=== PATIENT | male | born 1970 | race African-American/Black ===

== ENCOUNTER 2016-12-01 18:01 | Emergency (ER) | payer OTHER ==
[~2016-12-01] VITALS: Ht 180.3 cm; Wt 100.0 kg
[2016-12-01 18:04] VITALS: BP 123/69; PULSE 85; RESP 18; O2SAT 98
--- NOTE | 2016-12-01 18:15 | ED.REPORT ---
HPI-General Illness Date of Service Dec 01, 2016 ED Provider: Casimiro Tim MD Pt is a generally healthy 46 y/o male presenting to the ED due to accidental ingestion of H2O2 which occurred prior to arrival. The patient was gargling about 4 oz of H2O2 and 4 oz of water while he was at work and accidentally swallowed. He then drank water and some fruit. He c/o associated abdominal burning pain and nausea. Pt denies vomiting, any other symptoms. Nursing Notes Stated Complaint: STOMACH PAIN, INGESTED HYDROGEN PEROXIDE Chief Complaint: General Complaint Nursing Notes Reviewed: Yes Allergies: Uncoded Allergies: APAP (Allergy, Unknown, 12/01/16) General Time Seen by MD: 18:12 Chief Complaint Other (ingestion h2o2) Hx Obtained From: Patient Arrived By: Walk-in Sudden in Onset?: Yes Onset Occurred: 1 - 4 hours ago Symptom Duration: Since onset Location: : Abdomen Quality: Painful Radiation: : Does not radiate Severity: Current: Mild Severity: Maximum: Mild Recent Healthcare: No recent doctor visit, No recent hospitalization Similar Sx Previous: No Past Medical History Past Medical History None reported Past Surgical History Left patella Smoking History Unknown if Ever Smoker Ambulatory Status Independent Review of Systems Full Review of Systems Constitutional: Denies: Chills, Fever Respiratory: Denies: Non-productive cough, Shortness of breath Cardiovascular: Denies: Chest pain, Dyspnea on exertion GI: Reports: Abdominal pain, Nausea, Denies: Vomiting Complete sys rev & neg: except as marked. Physical Exam Vital Signs Vital Signs Date Time Temp Pulse Resp B/P Pulse Ox O2 Delivery O2 Flow Rate FiO2 12/01/16 18:04 36.7 85 18 123/69 98 Room Air Initial VS: Reviewed, Vital signs normal Head / Eyes: Atraumatic, Normocephalic, PERRL ENT: Mucous membranes moist, Conjunctiva normal, No scleral icterus Neck: Supple, Full range of motion Respiratory: Breath sounds normal, Clear to auscultation, No respiratory distress Cardiovascular: Regular rate & rhythm, Heart sounds normal, Intact distal pulses Abdomen / GI: Soft, Non-tender, No guarding, No rebound, No distention Extremities: Vascular intact, Neuro intact, No swelling, No tenderness Skin: Warm, Dry, No cyanosis Neurologic: Alert, Oriented, Nonfocal Psychiatric: Mood/affect normal, Behavior normal, Normal thought content General/Constitutional: Awake, Alert, No acute distress, Well appearing, Cooperative, Not toxic appearing Re-Eval/Medical Decision Med Decision/Clinical Course Patient is a 46-year-old male who presents the emergency department complaining of GI upset after accidentally swallowing about 4 ounces of a mixture of 50% water and 50% hydrogen peroxide. He has not vomited. He states that he now feels better though has some ongoing GI upset. Here in the emergency department he is afebrile with stable vital signs in no apparent distress. Abdominal examination is completely benign. Small ingestions of hydrogen peroxide are relatively benign. Presentation reviewed with poison control center who recommended no acute interventions other than symptomatic management and discharge. Patient was given Zofran ODT as well as a GI cocktail with symptom improvement. He was discharged in good condition. Prior to discharge follow-up and return precautions were reviewed in detail with the patient who verbalized understanding and agreement with the plan. The patient was discharged in stable condition. Time of Eval: 18:43 Patient Status: Condition resolved, Complete relief Re-Evaluation/Progress Note: Pt rechecked. Informed pt of plan for treatment. Pt understands and agrees with plan for treatment. F/U instructions and RTER warnings given. All questions addressed. Counseled Regarding: Diagnosis, Need for follow-up, When/why to return to ED Discharge & Departure Primary Impression: Ingestion of substance Encounter type: initial encounter Injury intent: accidental or unintentional Qualified Code: T65.91XA - Toxic effect of unspecified substance , accidental (unintentional), initial encounter Additional Impressions: Gastritis Gastritis type: unspecified gastritis Chronicity: unspecified Gastritis bleeding: presence of bleeding unspecified Qualified Code: K29.70 - Gastritis , unspecified, without bleeding Nausea Disposition: Home Discharge Condition All VS Reviewed: Yes Condition: Stable Additional Instructions: The amount of hydrogen peroxide you ingested is luckily not dangerous. Return to the emergency department for any worsening abdominal pain, vomiting, or for other new or worsening symptoms. Follow-up with a primary care doctor in 1 week if you continue to experience mild symptoms. The [facility] is happy to see you if you do not have a primary care doctor. Referrals: [facility] Scribe Attestation Portions of this note were transcribed by Dante Mireles. I, Dr. Tim personally performed the history, physical exam and medical decision-making; I reviewed and confirmed the accuracy of the information in the transcribed note. Signed by Bear Layne, 12/01/16 - 5 Casimiro Tim MD Dec 01, 2016 18:15 DANTE MIRELES Dec 01, 2016 18:43
[2016-12-01] MEDS ORDERED: Ondansetron 8 mg ODT Tablet PO ONE (18:25)
[2016-12-01] MEDS ORDERED: LidocaineVisc 2%:Antacid 1:1 10 mL Syringe PO ONE (18:40)
== END 2016-12-01 19:04 | disposition home or self-care (01) ==
LOC: SED 18:01
DX: T49.0X1A Poisoning by local antifungal, anti-infective and anti-inflammatory drugs, accidental (unintentional), initial encounter (principal); Y93.89 Activity, other specified; Y92.89 Other specified places as the place of occurrence of the external cause; Y99.8 Other external cause status; K29.70 Gastritis, unspecified, without bleeding; Z88.8 Allergy status to other drugs, medicaments and biological substances

== ENCOUNTER 2017-02-18 06:40 | Emergency (ER) | payer OTHER ==
[~2017-02-18] VITALS: Ht 177.8 cm; Wt 100.0 kg
[2017-02-18 07:00] VITALS: BP 132/86; PULSE 66; RESP 16; O2SAT 99
--- NOTE | 2017-02-18 07:24 | ED.REPORT ---
HPI-Extremity Problem Upper Date of Service Feb 18, 2017 ED Provider: Duncan Burgess MD Patient is a 46 year old male who presents to the ED complaining of right hand swelling onset 4 days ago. Associated symptoms include itching. The patient reports that it started as a small bite mohit but has continued to progressively swell. Patient denies other symptoms at this time. Nursing Notes Stated Complaint: BITE ON RIGHT HAND Chief Complaint: Extremity Trauma Nursing Notes Reviewed: Yes Allergies: Uncoded Allergies: APAP (Allergy, Unknown, 12/01/16) General Time Seen by MD: 07:23 Chief Complaint Hand injury right Hx Obtained From: Patient Arrived By: Walk-in Onset Occurred: 4 days ago Symptom Duration: Since onset Location: : Hand right Quality: Itching Similar Sx Previous: No Past Medical History Past Medical History None reported Past Surgical History Left patella Smoking History Unknown if Ever Smoker Social History Other Social History: Ambulatory Status Independent Review of Systems Constitutional: Denies: Chills, Fever Musculoskeletal: Reports: Extremity swelling Skin: Reports Itching, Denies Bruising, Denies Rash Neurologic: Denies: Numbness, Weakness Complete sys rev & neg: except as marked. Respiratory: Denies: Non-productive cough, Shortness of breath Physical Exam Initial Vital Signs Vital Signs (First) Date Time Temp Pulse Resp B/P Pulse Ox O2 Delivery O2 Flow Rate FiO2 02/18/17 07:00 36.4 66 16 132/86 99 Room Air Initial VS: Reviewed General/Constitutional: Awake, Alert, No acute distress Respiratory / Chest: Atraumatic, No respiratory distress Wrist / Hand: Atraumatic, No erythema lump on the dorsum of right hand over 3rd metacarpal mildly swollen not warm Skin: Atraumatic, Color NL, No rash, Warm, Dry Neurologic: Oriented X3, Speech NL Head / Eyes: Atraumatic, Normocephalic, PERRL, EOMI Lymphatic: No axillary adenopathy Psychiatric: Affect NL, Mood NL Re-Eval/Medical Decision Re-Evaluation/Progress : Time of Eval: 07:32 Re-Evaluation/Progress Note: Discussed plan for discharge. Patient understands and agrees to plan. All questions were addressed. Counseled Regarding: Diagnosis, Need for follow-up, When/why to return to ED Discharge & Departure Impression: Primary Impression: Insect bite Encounter type: initial encounter Qualified Code: W57.XXXA - Bitten or stung by nonvenomous insect and other nonvenomous arthropods, initial encounter Disposition: Home Discharge Condition All VS Reviewed: Yes Condition: Stable Additional Instructions: This bite will feel better soon. Until then, use OTC 1%hydrocortisone creme applied to the bite. May use benadryl 25-50mg every 6 hours as needed for itching. This can cause drowsiness. Ice will help, keep ice wrapped in a towel. Remove after 10-15 mins, you can do this several times a day. follow up with primary care if not better in 3 days. Referrals: Roque Ignacio MD (PCP) Bear Attestation Portions of this note were transcribed by Galina Ndiaye. I, Dr. Burgess personally performed the history, physical exam and medical decision-making; I reviewed and confirmed the accuracy of the information in the transcribed note. Signed by: Bear Holman, 02/18/17 Duncan Burgess MD Feb 18, 2017 07:24 iMrian Ndiaye Feb 18, 2017 07:32
== END 2017-02-18 07:50 | disposition home or self-care (01) ==
LOC: SED 06:40
DX: S60.561A Insect bite (nonvenomous) of right hand, initial encounter (principal); W57.XXXA Bitten or stung by nonvenomous insect and other nonvenomous arthropods, initial encounter; Y93.9 Activity, unspecified; Y92.009 Unspecified place in unspecified non-institutional (private) residence as the place of occurrence of the external cause; Y99.9 Unspecified external cause status